=== PATIENT | male | born 1985 | race Two or more races ===

== ENCOUNTER 2018-04-20 10:21 | Emergency (ER) | payer MEDICAID ==
[~2018-04-20] VITALS: Ht 177.8 cm; Wt 79.4 kg
[~2018-04-20 10:21] MED LIST: AMYL1CAP56 PO; BUSP10TA3 PO; HYDR4TAB4 PO; INSU100V11 SQ; INSU100V7 SQ; QUET300T2 PO; ZOLP5TAB2 PO
--- NOTE | 2018-04-20 10:34 | NUR ---
PT BIB SELF C/O chest pain and epigastric pain x 20 mins ago, PT IS AAOX4, NOT IN RESPIRATORY DISTRESS, KEPT RESTED AND COMFORTABLE. LABS DRAWNED AND SENT TO LAB.
--- NOTE | 2018-04-20 10:35 | NUR ---
DR. ROCHA AT BEDSIDE FOR EVAL.
[2018-04-20] MEDS ORDERED: ONDANSETRON HCL/PF 4 MG/2 ML VIAL ONE (10:42)
[2018-04-20] MEDS ORDERED: HYDROMORPHONE 1 MG/1 ML DISP.SYRIN ONE (10:43)
[2018-04-20 10:46] LABS: BASOPHILS # (AUTO) 0.3 /CMM (0.0-0.2); BASOPHILS % (AUTO) 4.4 % (0.0-2.0); EOSINOPHILS % (AUTO) 1.3 % (0.0-6.0); HEMATOCRIT 31 % (39-51); HEMOGLOBIN 10.3 g/dL (13.5-17.5); LYMPHOCYTES # (AUTO) 1.7 /CMM (0.8-4.8); LYMPHOCYTES % (AUTO) 24.5 % (20.0-44.0); MEAN CORPUSCULAR HGB CONC 33 g/dl (31.0-36.0); MEAN CORPUSCULAR VOLUME 79 fL (80-96); MONOCYTES # (AUTO) 0.7 /CMM (0.1-1.30); MONOCYTES % (AUTO) 9.9 % (2.0-12.0); NEUTROPHILS # (AUTO) 4.1 /CMM (1.8-8.9); NEUTROPHILS % (AUTO) 59.9 % (43.0-81.0); PLATELET COUNT (AUTO) 795 /CMM (150-450); RED BLOOD CELL COUNT(AUTO) 3.98 MIL/uL (4.5-6.0); WHITE BLOOD COUNT (AUTO) 6.9 K/uL (4.3-11.0)
[2018-04-20 10:59] LABS: POTASSIUM 3.7 mmol/L (3.5-5.1)
[2018-04-20] MEDS ORDERED: HYDROMORPHONE INJ 2 MG/ML DISP.SYRIN IV ONE (11:00)
[2018-04-20] MEDS ORDERED: ONDANSETRON HCL/PF 4 MG/2 ML VIAL IVP ONE (11:00)
--- NOTE | 2018-04-20 11:03 | NUR ---
[employer] DEVELOPER AT BEDSIDE.
[2018-04-20 11:07] LABS: CALCIUM, SERUM 8.6 mg/dL (8.5-10.1); CARBON DIOXIDE 30 mmol/L (21-32); CHLORIDE 98 mmol/L (98-107); SODIUM SERUM 134 mmol/L (136-145); UREA NITROGEN, BLOOD 6 mg/dL (7-18)
[2018-04-20 11:08] LABS: ALANINE AMINOTRANSFERASE 18 U/L (12-78); ALBUMIN 2.8 g/dL (3.4-5.0); ALKALINE PHOSPHATASE 134 U/L (46-116); ASPARTATE AMINOTRANSFERASE 16 U/L (15-37); BILIRUBIN,DIRECT 0.1 mg/dL (0.0-0.2); BILIRUBIN,TOTAL 0.3 mg/dL (0.2-1.0); CREATININE 0.8 mg/dL (0.6-1.3); LIPASE 40 U/L (73-393); TOTAL PROTEIN, SERUM 7.9 g/dL (6.4-8.2)
[2018-04-20 11:09] LABS: GLUCOSE 401 mg/dL (74-106)
--- NOTE | 2018-04-20 11:41 | NUR ---
Patient discharged to home in stable condition. Written and verbal after care instructions given. Patient verbalizes understanding of instruction.
[2018-04-20 11:42] VITALS: BP 134/91
== END 2018-04-20 11:43 | disposition home or self-care (01) ==
LOC: ER 10:22
DX: R10.13 Epigastric pain (principal); R00.2 Palpitations; E11.9 Type 2 diabetes mellitus without complications; F17.200 Nicotine dependence, unspecified, uncomplicated; Z90.49 Acquired absence of other specified parts of digestive tract; Z98.890 Other specified postprocedural states; Z87.19 Personal history of other diseases of the digestive system; Z88.1 Allergy status to other antibiotic agents; Z79.4 Long term (current) use of insulin; Z79.899 Other long term (current) drug therapy
CPT/HCPCS: 36415; 71045-TC; 80048-TC; 80076-TC; 83690-TC; 84484-TC; 85025-TC; 85730-TC; A4606; J1170; J2405; Z7610

== ENCOUNTER 2018-05-11 20:43 | Inpatient (IN) | payer MEDICAID ==
[~2018-05-11] VITALS: Ht 177.8 cm; Wt 80.3 kg
--- NOTE | 2018-05-11 21:10 | NUR ---
TO BED 4 AMBULATORY C/O EPIGASTRIC ABDOMINAL PAIN X3 DAYS +N/V, DENIES DIARRHEA. PT AAOX4 NO ACUTE DISTRESS NOTED, RESP EVEN AND UNLABORED. URINE SAMPLE COLLECTED AND SENT TO LAB. PENDING ER MD HEWITT.
[2018-05-11] MEDS ORDERED: ONDANSETRON HCL/PF 4 MG/2 ML VIAL ONE (21:29)
[2018-05-11] MEDS ORDERED: HYDROMORPHONE INJ 0.5 MG/0.5 ML SYRINGE ONE ×2 (21:30→23:21)
[2018-05-11] MEDS ORDERED: ONDANSETRON HCL/PF 4 MG/2 ML VIAL IVP ONE (21:30)
[2018-05-11] MEDS ORDERED: HYDROMORPHONE INJ 2 MG/ML DISP.SYRIN IV ONE (21:30)
[2018-05-11] MEDS ORDERED: IV NS 0.9% 1,000 ML BAG IV ONE ×2 (21:30→23:30)
[2018-05-11 21:44] LABS: APPEARANCE,URINE Clear (CLEAR); BILIRUBIN,URINE Negative (NEGATIVE); BLOOD, URINE Negative Ery/uL (NEGATIVE); COLOR,URINE Yellow (YELLOW); KETONES,URINE Negative (NEGATIVE); LEUKOCYTE ESTERASE ,URINE Negative (NEGATIVE); NITRITE, URINE Negative (NEGATIVE); PH,URINE 6.5 (5.0-8.0); PROTEIN,URINE Negative (NEGATIVE); UGLUCOSE >=1000 mg/dL (NEGATIVE); UROBILINOGEN,URINE 0.2 EU/dL (0.2)
--- NOTE | 2018-05-11 21:44 | NUR ---
RN AT BEDSIDE TO MEDICATE PT.
[2018-05-11 21:47] LABS: BASOPHILS % (AUTO) 1.1 % (0.0-2.0); EOSINOPHILS % (AUTO) 0.7 % (0.0-6.0); HEMATOCRIT 34 % (39-51); HEMOGLOBIN 10.9 g/dL (13.5-17.5); LYMPHOCYTES # (AUTO) 0.9 /CMM (0.8-4.8); LYMPHOCYTES % (AUTO) 20.8 % (20.0-44.0); MEAN CORPUSCULAR HGB CONC 32 g/dl (31.0-36.0); MEAN CORPUSCULAR VOLUME 80 fL (80-96); MONOCYTES # (AUTO) 0.2 /CMM (0.1-1.30); MONOCYTES % (AUTO) 4.4 % (2.0-12.0); NEUTROPHILS # (AUTO) 3.1 /CMM (1.8-8.9); PLATELET COUNT (AUTO) 787 /CMM (150-450); RED BLOOD CELL COUNT(AUTO) 4.29 MIL/uL (4.5-6.0); WHITE BLOOD COUNT (AUTO) 4.3 K/uL (4.3-11.0)
[2018-05-11 21:54] LABS: BACTERIA,URINE None seen /HPF (None Seen); RBC,URINE 0-2 /HPF (0-2); SQUAMOUS EPITHELIAL CELL,UR Few /HPF (None Seen); WBC,URINE 0-2 /HPF (0-3)
[2018-05-11 21:59] LABS: ALBUMIN 3.5 g/dL (3.4-5.0); BILIRUBIN,DIRECT 0.1 mg/dL (0.0-0.2); BILIRUBIN,TOTAL 0.5 mg/dL (0.2-1.0); CALCIUM, SERUM 9.2 mg/dL (8.5-10.1); POTASSIUM 5.3 mmol/L (3.5-5.1); TOTAL PROTEIN, SERUM 9.1 g/dL (6.4-8.2)
--- NOTE | 2018-05-11 22:28 | NUR ---
RT AT BEDSIDE FOR ABG
[2018-05-11 22:39] LABS: ABG OXYGEN SATURATION 97.5 % (92.0-98.5); ABG PCO2 47.5 mmHg (35.0-45.0); ABG PH 7.381 (7.350-7.450); ABG PO2 109.1 mmHg (75.0-100.0); COHb 0.6 % (0.5-1.5); MetHb 0.5 % (0.0-1.5); O2Hb 96.4 % (94.0-97.0); SITE, ABG Right Radial; VENT MODE, BG RA
[2018-05-11] MEDS ORDERED: INSULIN REGULAR, HUMAN 100 UNIT/ML 10 ML VIAL SQ ONE (23:00)
[2018-05-11] MEDS ORDERED: INSULIN REGULAR, HUMAN 100 UNIT/ML 10 ML VIAL ONE (23:21)
[2018-05-11] MEDS ORDERED: HYDROMORPHONE INJ 0.5 MG/0.5 ML SYRINGE IV ONE (23:30)
--- NOTE | 2018-05-11 23:38 | NUR ---
ER MARY BANKS AT BEDSIDE SPOKE TO PT REGARDING HOSPITAL ADMISSION. PT AGREED.
[2018-05-12] VITALS (7 sets, daily range): BP systolic 94–109; BP diastolic 53–75
--- NOTE | 2018-05-12 00:10 | NUR ---
REPORT CALLED TO [employer]PA[employer] MANAGER ARVI. WILL TRANSPORT PT VIA ACLS PROTOCOL.
--- NOTE | 2018-05-12 00:28 | NUR ---
TROY HERNANDEZ TALKING TO IVETTE HONG [facility] REGARDING PT ADMISSION. WILL TRANSPORT PT VIA ACLS PROTOCOL.
[2018-05-12] MEDS ORDERED: INSULIN REGULAR, HUMAN 100 UNIT/ML 3 ML VIAL SQ PRN (00:30)
[2018-05-12] MEDS ORDERED: ONDANSETRON HCL/PF 4 MG/2 ML VIAL IVP PRN (00:30)
[2018-05-12] MEDS ORDERED: HYDROCODONE/APAP 5/325MG 1 EACH TABLET PO PRN (00:30)
[2018-05-12] MEDS ORDERED: Z GUARD REMEDY 2 OZ OINT TP PRN (00:30)
[2018-05-12] MEDS ORDERED: MAGNESIUM HYDROXIDE 30 ML UDC PO PRN (00:30)
[2018-05-12] MEDS ORDERED: MORPHINE SULFATE INJ 4 MG/ML DISP.SYRIN IV PRN (00:30)
[2018-05-12] MEDS ORDERED: ACETAMINOPHEN 325 MG TABLET PO PRN (00:30)
[2018-05-12] MEDS ORDERED: DEXTROSE 50%-WATER 50 ML DISP.SYRIN IV PRN ×2 (00:30→13:00)
[2018-05-12] MEDS ORDERED: MAG HYDROX/AL HYDROX/SIMETH 30 ML UDC PO PRN (00:30)
--- NOTE | 2018-05-12 00:45 | NUR ---
RECEIVED PATIENT FROM ER FOR DX ABDOMINAL PAIN. AO X 3, ABLE TO MAKE NEEDS KNOWN. NO ACUTE DISTRESS NOTED. 5/10 ABDOMINAL PAIN. SKIN INTACT. SAFETY REMINDERS GIVEN. ON LOW BED WITH BILATERAL UPPER SIDE RAILS UP. CALL ELDER WITHIN EASY REACH. WILL CONTINUE TO MONITOR.
[2018-05-12] MEDS ORDERED: IV NS 0.9% 1,000 ML IV PRN (01:00)
[2018-05-12] MEDS ORDERED: INSULIN GLARGINE, 100 UNIT/ML CARTRIDGE SQ SCH ×2 (01:00→22:00)
[2018-05-12] MEDS: QUETIAPINE FUMARATE 100 MG TABLET PO SCH ×2 (01:30→22:26)
--- NOTE | 2018-05-12 02:16 | NUR ---
NOTIFIED IVETTE WALSH THAT PATIENT DOES NOT WANT NORCO BECAUSE IT'S INEFFECTIVE. PATIENT WANTS DILAUDID 2 MG OR 4 MG PO. NEW ORDER RECEIVED FOR DILAUDID 2 MG PO X 1; NOTED AND CARRIED OUT.
[2018-05-12] MEDS ORDERED: HYDROMORPHONE HCL 2 MG TABLET PO PRN (02:30)
--- NOTE | 2018-05-12 06:00 | NUR ---
PATIENT ASLEEP, EASILY AROUSABLE. RESPIRATONS EVEN. NO SIGNS OF PAIN NOTED. DUE MEDS GIVEN WITH NO ASE NOTED. IVF INFUSING ORDERED. NO SYMPTOMS OF HYPER/HYPOGLYCEMIA. NEEDS ATTENDED. KEPT CLEAN, DRY, AND COMFORTABLE. SAFETY PRECAUTIONS AND COMFORT MEASURES IN PLACE. WILL GIVE REPORT TO DAY SHIFT FOR CONTINUITY OF CARE.
[2018-05-12] MEDS: BLOOD SUGAR DIAGNOSTIC 1 EACH STRIP IN SCH ×7 (06:39→23:55)
--- NOTE | 2018-05-12 06:55 | NUR ---
PROVIDER HEALTHCARE OR MEDICAL PAGED FOR CRITICAL BLOOD SUGAR RESULT; WAITING FOR CALL BACK. WILL ENDORSE TO DAY SHIFT.
[2018-05-12 07:41] LABS: BASOPHILS # (AUTO) 0.1 /CMM (0.0-0.2); BASOPHILS % (AUTO) 1.8 % (0.0-2.0); EOSINOPHILS % (AUTO) 1.6 % (0.0-6.0); HEMATOCRIT 28 % (39-51); HEMOGLOBIN 9.2 g/dL (13.5-17.5); LYMPHOCYTES # (AUTO) 1.6 /CMM (0.8-4.8); LYMPHOCYTES % (AUTO) 37.4 % (20.0-44.0); MEAN CORPUSCULAR HGB CONC 33 g/dl (31.0-36.0); MEAN CORPUSCULAR VOLUME 78 fL (80-96); MONOCYTES # (AUTO) 0.7 /CMM (0.1-1.30); MONOCYTES % (AUTO) 15.8 % (2.0-12.0); NEUTROPHILS # (AUTO) 1.8 /CMM (1.8-8.9); NEUTROPHILS % (AUTO) 43.4 % (43.0-81.0); PLATELET COUNT (AUTO) 632 /CMM (150-450); RED BLOOD CELL COUNT(AUTO) 3.58 MIL/uL (4.5-6.0); WHITE BLOOD COUNT (AUTO) 4.2 K/uL (4.3-11.0)
--- NOTE | 2018-05-12 07:48 | NUR ---
RN OPENING NOTES RECEIVED PATIENT IN BED SLEEPING, EASILY AROUSES. A/OX3, ABLE TO MAKE NEEDS KNOWN. NOT IN ANY FORM OF DISTRESS, NO SOB. DENIED PAIN OR DISCOMFORT AT THIS TIME. IV ACCESS INTACT AND PATENT. KEPT PATIENT SAFE AND COMFORTABLE. BED IN LOW/LOCKED POSITION, SIDERAILS UPX2, CALL LIGHT IN REACH. WILL MONIOTR ACCORDINGLY.
[2018-05-12 07:59] LABS: CALCIUM, SERUM 9.1 mg/dL (8.5-10.1); CREATININE 0.8 mg/dL (0.6-1.3); MAGNESIUM 2.1 mg/dL (1.8-2.4); PHOSPHORUS 3.5 mg/dL (2.5-4.9); POTASSIUM 5.4 mmol/L (3.5-5.1)
[2018-05-12] MEDS ORDERED: Medication Not On Formulary EA (Lipase/Protease/Amylase (Creon Dr 12,000 Units Capsule) PO SCH (08:00)
[2018-05-12 08:05] LABS: THYROID STIMULATING HORMONE 0.423 uIU/mL (0.358-3.74)
[2018-05-12] MEDS: PANTOPRAZOLE 40 MG TABLET.DR PO SCH (08:54)
[2018-05-12] MEDS: busPIRone 5 MG TABLET PO SCH ×2 (08:54→16:45)
--- NOTE | 2018-05-12 09:00 | NUR ---
RN NOTES PER PATIENT, HE DOESNT HAVE ANY OPEN WOUNDS OR BRUISES. REFUSED PHOTOS FOR NOW. STILL ON HIS PANTS, REFUSED BODY CHECK.
[2018-05-12] MEDS: IV NS 0.9% 1,000 ML IV PRN ×2 (09:23→20:49)
[2018-05-12] MEDS: LIPASE/PROTEASE/AMYLASE 1 EACH CAPSULE.DR PO SCH ×2 (12:25→17:01)
[2018-05-12] MEDS: HYDROMORPHONE HCL 2 MG TABLET PO PRN ×3 (12:30→20:47)
[2018-05-12] MEDS: INSULIN REGULAR, HUMAN 100 UNIT/ML 3 ML VIAL SQ PRN ×2 (13:10→17:11)
--- NOTE | 2018-05-12 19:15 | NUR ---
RN CLOSING NOTES PATIENT IN STABLE CONDITION. ALL NEEDS ATTENDED AND PROVIDED. ALL DUE MEDICATIONS ADMINISTERED ORDERED. KEPT PATIENT SAFE AND COMFORTABLE. BED IN LOW/LOCKED POSITION. SIDERAILS UPX2, CALL LIGHT IN REACH. ENDORSED TO NIGHT RN FOR MARIT.
--- NOTE | 2018-05-12 19:18 | NUR ---
MS RN OPENING NOTES: RECEIVED PT ON ROOM AIR AND IS TOLERATING WELL. NO S/S OF DISTRESS AT THIS TIME. NO SOB NOTED. PT HAS IV AND IS BEING INFUSED WITH IV NS AT 125ML/HR. BED KEPT IN LOW, LOCKED POSITION, AND SIDE RAILS X 2UP. WILL CONTINUE TO MONITOR PT.
--- NOTE | 2018-05-12 19:31 | NUR ---
MS RN NOTES: ACCUCHEK NON ADMIN THERE IS ANOTHER ONE; DUPLICATE .
--- NOTE | 2018-05-12 20:52 | NUR ---
MS RN NOTES: PT COMPLAINING OF 8/10 AB PAIN. PT WAS ADMINISTERED DILAUDID 2MG PO. WILL CONTINUE TO MONITOR PT.
[2018-05-12] MEDS: *INSULIN REGULAR(HUMULIN R)HUM 100 UNIT/ML VIAL SQ PRN (21:41)
[2018-05-12] MEDS: ZOLPIDEM TARTRATE 5 MG TABLET PO SCH (21:49)
--- NOTE | 2018-05-12 21:52 | NUR ---
MS RN NOTES: BLOOD SUGAR WAS 320. 48 UNITS OF LANTUS WAS ADMINISTERED. IN ADDITION, 8 UNITS OF REGULAR INSULIN WAS ADMINISTERED. PUDDING, ORANGE JUICE, SANDWICH, CHARLES CRACKERS PROVIDED AT BEDSIDE. ALSO, PT REQUESTING FOR AMBIEN 10MG. INFORMED PT THAT MD ORDER IS AMBIEN 5MG PO ONLY. PT ADMINISTERED AMBIEN 5MG PO.
[2018-05-12 22:10] LABS: OCCULT BLOOD STOOL NEGATIVE (NEGATIVE)
[2018-05-13 00:39] VITALS: BP 134/87
[2018-05-13] MEDS: HYDROMORPHONE HCL 2 MG TABLET PO PRN ×6 (00:47→22:55)
--- NOTE | 2018-05-13 00:49 | NUR ---
MS RN NOTES: PT COMPLAINING OF ABDOMINAL PAIN 12/02. PT WAS ADMINISTERED DILAUDID 2MG PO. WILL CONTINUE TO MONITOR.
[2018-05-13] MEDS: IV NS 0.9% 1,000 ML IV PRN ×2 (05:13→21:48)
[2018-05-13 05:41] VITALS: BP 128/86
--- NOTE | 2018-05-13 05:47 | NUR ---
MS RN NOTES: PT COMPLAINING OF 8/10 ABDOMINAL SHARP PAIN. PT WAS ADMINISTERED DILAUDID 2MG PO. WILL CONTINUE TO MONITOR.
[2018-05-13] MEDS: BLOOD SUGAR DIAGNOSTIC 1 EACH STRIP IN SCH ×7 (06:06→23:07)
[2018-05-13] MEDS: INSULIN REGULAR, HUMAN 100 UNIT/ML 3 ML VIAL SQ PRN ×3 (06:23→17:15)
--- NOTE | 2018-05-13 06:28 | NUR ---
MS RN NOTES: BLOOD SUGAR THIS AM WAS 338. 16 UNITS OF INSULIN WAS ADMINISTERED. PT ALWAYS HAVING SNACKS AT BEDSIDE. WILL ENDORSE TO AM NURSE FOR AMRIT.
--- NOTE | 2018-05-13 07:27 | NUR ---
MS RN CLOSING NOTES: ALL NEEDS WERE ATTENDED AND ANTICIPATED FOR. PT ASLEEP AT THIS TIME AND RESTING COMFORTABLY. PT REFUSING TO HAVE SKIN PHOTOS TAKEN WELL. PT HAS IV AND IS BEING INFUSED WITH IV NS 125ML/HR. BED KEPT IN LOW, LOCKED POSITION, AND SIDE RAILS X 2UP. ENDORSED TO AM NURSE FOR AMRIT.
--- NOTE | 2018-05-13 07:50 | NUR ---
MS RN OPENING NOTE RECEIVED PATIENT IN BED. SLEEPING, EASILY AROUSED WITH VERBAL STIMULI. ORIENTED X4, VERBALLY AGGRESSIVE. ON ROOM AIR, TOLERATING WELL. IN NO APPARENT DISTRESS OR DISCOMFORT AT THIS TIME. RESPIRATIONS EVEN AND UNLABORED, DENIES PAIN AND SOB. PATIENT IS ABLE TO COMMUNICATE NEEDS. LEFT FA 18G IVC WITH FLUIDS RUNNING AT 125ML/HR. KEPT CLEAN AND COMFORTABLE. ALL NEEDS ATTENDED, SAFETY MEASURES IN PLACE, BED IN LOW LOCKED POSITION, SIDE RAILS UP X2, CALL LIGHT WITHIN EASY REACH. WILL CONTINUE TO MONITOR.
[2018-05-13 08:00] VITALS: BP 105/60
[2018-05-13] MEDS: LIPASE/PROTEASE/AMYLASE 1 EACH CAPSULE.DR PO SCH ×3 (08:27→17:13)
[2018-05-13] MEDS: PANTOPRAZOLE 40 MG TABLET.DR PO SCH (08:27)
[2018-05-13] MEDS: busPIRone 5 MG TABLET PO SCH ×2 (08:27→17:07)
[2018-05-13 16:00] VITALS: BP 119/67
--- NOTE | 2018-05-13 18:50 | NUR ---
MS RN CLOSING NOTE PATIENT IN BED. SLEEPING, EASILY AROUSED WITH VERBAL STIMULI. ORIENTED X4. ON ROOM AIR, TOLERATING WELL. IN NO APPARENT DISTRESS OR DISCOMFORT AT THIS TIME. RESPIRATIONS EVEN AND UNLABORED, DENIES PAIN AND SOB. PATIENT IS ABLE TO COMMUNICATE NEEDS. LEFT FA 18G IVC WITH FLUIDS RUNNING AT 125ML/HR. KEPT CLEAN AND COMFORTABLE. ALL NEEDS ATTENDED, SAFETY MEASURES IN PLACE, BED IN LOW LOCKED POSITION, SIDE RAILS UP X2, CALL LIGHT WITHIN EASY REACH. WILL ENDORSE TO PM NURSE FOR AMRIT.
--- NOTE | 2018-05-13 19:41 | NUR ---
MS/RN RECEIVE PATIENT AWAKE, ALERT, ORIENTED, COMFORTABLE, NO C/O PAIN, NO DISTRESS NOTED, CALL LIGHT IN REACH. WILL MONITOR.
[2018-05-13 20:00] VITALS: BP 128/85
[2018-05-13] MEDS: ZOLPIDEM TARTRATE 5 MG TABLET PO SCH (21:47)
[2018-05-13] MEDS: QUETIAPINE FUMARATE 100 MG TABLET PO SCH (21:47)
[2018-05-13] MEDS: *INSULIN REGULAR(HUMULIN R)HUM 100 UNIT/ML VIAL SQ PRN (23:01)
[2018-05-13] MEDS: INSULIN GLARGINE, 100 UNIT/ML CARTRIDGE SQ SCH (23:02)
--- NOTE | 2018-05-13 23:20 | NUR ---
MS/RN ACCU CHECK AC HS MILD WAS NOT ADMINISTERED, THIS ORDER WAS CHANGED TO MODERATE SLIDING SCALE.
--- NOTE | 2018-05-14 00:12 | NUR ---
MS/RN PATIENT IS SLEEPING AT THIS TIME, APPEAR COMFORTABLE, BREATHING EVEN AND UNLABORED, CALL LIGHT IN REACH. WILL CONTINUE TO MONITOR.
--- NOTE | 2018-05-14 02:00 | NUR ---
MS/RN PATIENT AWAKE, WENT TO THE BATHROOM, REFUSED TO BE CONNECTED BACK TO IVF.
[2018-05-14] MEDS: HYDROMORPHONE HCL 2 MG TABLET PO PRN ×6 (02:54→23:30)
--- NOTE | 2018-05-14 06:28 | NUR ---
MS/RN STILL SLEEPING AT THIS TIME, AROUSABLE APPEAR COMFORTABLE, NO DISTRESS NOTED, ALL NEEDS ATTENDED AT THIS TIME, WILL CONTINUE TO MONITOR.
[2018-05-14] MEDS: INSULIN REGULAR, HUMAN 100 UNIT/ML 3 ML VIAL SQ PRN ×3 (07:04→17:08)
[2018-05-14] MEDS: BLOOD SUGAR DIAGNOSTIC 1 EACH STRIP IN SCH ×8 (07:05→22:47)
--- NOTE | 2018-05-14 07:47 | NUR ---
MS RN OPENING NOTE RECEIVED PATIENT IN BED. SLEEPING, EASILY AROUSED WITH VERBAL STIMULI. ORIENTED X4. ON ROOM AIR, TOLERATING WELL. IN NO APPARENT DISTRESS OR DISCOMFORT AT THIS TIME. RESPIRATIONS EVEN AND UNLABORED, DENIES PAIN AND SOB. PATIENT IS ABLE TO COMMUNICATE NEEDS. LEFT FA 18G IVC, SL, INFILTRATED, PATIENT REFUSED TO HAVE IT REMOVED AT THIS TIME. EXPLAINED RISKS AND BENEFITS, PATIENT VERBALIZED UNDERSTANDING AND ASKED TO COME BACK LATER. KEPT CLEAN AND COMFORTABLE. ALL NEEDS ATTENDED, SAFETY MEASURES IN PLACE, BED IN LOW LOCKED POSITION, SIDE RAILS UP X2, CALL LIGHT WITHIN EASY REACH. WILL CONTINUE TO MONITOR.
[2018-05-14 08:00] VITALS: BP_SYST 118; BP_SYST 162; BP_DIAS 64; BP_DIAS 91
[2018-05-14 08:01] VITALS: BP 118/64
[2018-05-14] MEDS: PANTOPRAZOLE 40 MG TABLET.DR PO SCH (08:11)
[2018-05-14] MEDS: busPIRone 5 MG TABLET PO SCH ×2 (08:11→17:11)
[2018-05-14] MEDS: LIPASE/PROTEASE/AMYLASE 1 EACH CAPSULE.DR PO SCH ×3 (08:11→17:11)
--- NOTE | 2018-05-14 10:28 | NUR ---
PATIENT WITH FEVER 100.4. COOLING MEASURES IMPLEMENTED, TYLENOL 650MG PRN ADMINISTERED. MD NOTIFIED. WILL CONTINUE TO MONITOR.
--- NOTE | 2018-05-14 10:29 | NUR ---
PATIENT' S BODY TEMPERATURE WAS RECHECKED. 98.1 AT THIS TIME. PATIENT IS AFEBRILE. WILL CONTINUE TO MONITOR.
--- NOTE | 2018-05-14 14:00 | NUR ---
PATIENT'S PREVIOUS IV SITE INFILTRATED, SWELLING PRESENT ON THE LEFT FOREARM. ELEVATED THE EXTREMITY AND APPLIED ICE PACK TO THE AFFECTED AREA. PATIENT REFUSED TO HAVE PICTURE TAKEN OF THE ARM. AFTER ABOUT AN HOUR NOTED THAT PATIENT REMOVED THE ICE PACK AND THE PILLOW. ENCOURAGED TO ELEVATE AND ICE THE ARM, PATIENT REFUSED, STATING HE DOES NOT WANT TO DO THAT NOW. RISKS AND BENEFITS EXPLAINED, PATIENT VERBALIZED UNDERSTANDING BUT STILL INSISTED TO LEAVE THE ARM IT IS. WILL CONTINUE TO MONITOR.
--- NOTE | 2018-05-14 14:00 | NUR ---
SEVERAL ATTEMPTS MADE TO ESTABLISH IV ACCESS BY 2 DIFFERENT NURSES FROM THE UNIT AND ONE OTHER NURSE FROM ER, CHARLES. ALL ATTEMPTS UNSUCCESSFUL. REPORTED TO DR. MATOS, PATIENT IS OK TO REMAIN WITH NO IV ACCESS PER MD. NOTED AND CARRIED OUT.
[2018-05-14 16:00] VITALS: BP 120/75
--- NOTE | 2018-05-14 18:00 | NUR ---
PATIENT NON-COMPLIANT WITH PRESCRIBED DIET. EDUCATION PROVIDED, RISKS AND BENEFITS DISCUSSED.
--- NOTE | 2018-05-14 18:38 | NUR ---
MS RN CLOSING NOTE PATIENT IN BED. ALERT ORIENTED X4. ON ROOM AIR, TOLERATING WELL. IN NO APPARENT DISTRESS OR DISCOMFORT AT THIS TIME. RESPIRATIONS EVEN AND UNLABORED, DENIES PAIN AND SOB. PATIENT IS ABLE TO COMMUNICATE NEEDS. NO IV SITE PRESENT. MD AWARE. LEFT FOREARM EDEMA PRESENT, REFUSED ICE PACK. KEPT CLEAN AND COMFORTABLE. ALL NEEDS ATTENDED, SAFETY MEASURES IN PLACE, BED IN LOW LOCKED POSITION, SIDE RAILS UP X2, CALL LIGHT WITHIN EASY REACH. WILL ENDORSE TO PM NURSE FOR AMRIT.
--- NOTE | 2018-05-14 19:31 | NUR ---
RN NOTES COMPLAINTS OF 8/10 LEFT ARM PAIN AND ABDOMINAL PAIN. DILAUDID GIVEN PER MD ORDERED. ALL COMFORT MEASURES PROVIDED.
--- NOTE | 2018-05-14 19:35 | NUR ---
MS RN NOTEs RECEIVED PATIENT AWAKE IN BED. ORIENTED X4. ON ROOM AIR, TOLERATING WELL. RESPIRATIONS EVEN AND NON LABORED, COMPLAINTS OF ABDOMINAL PAIN 8/10 PATIENT IS ABLE TO COMMUNICATE NEEDS. DILAUDID 2MG TAB GIVEN PER MD ORDER. ALL NEEDS ATTENDED, SAFETY MEASURES IN PLACE, BED IN LOW LOCKED POSITION, SIDE RAILS UP X2, CALL LIGHT WITHIN EASY REACH. WILL CONTINUE TO MONITOR ACCORDINGLY.
[2018-05-14 20:00] VITALS: BP 129/83
[2018-05-14 20:01] VITALS: BP 129/83
--- NOTE | 2018-05-14 20:30 | NUR ---
RN NOTES PATIENT IS RESTING AT THIS TIME WITH VERY MINIMAL DISCOMFORT WITH FACIAL GRIMACING NOTED.
[2018-05-14] MEDS: INSULIN GLARGINE, 100 UNIT/ML CARTRIDGE SQ SCH (22:41)
[2018-05-14] MEDS: QUETIAPINE FUMARATE 100 MG TABLET PO SCH (22:46)
[2018-05-14] MEDS: *INSULIN REGULAR(HUMULIN R)HUM 100 UNIT/ML VIAL SQ PRN (22:46)
[2018-05-14] MEDS: ZOLPIDEM TARTRATE 5 MG TABLET PO SCH (22:46)
--- NOTE | 2018-05-14 23:30 | NUR ---
RN NOTES ALL NEEDS ATTENDED, PATIENT COMPLAINTS OF ABDOMINAL PAIN, DILAUDID GIVEN ORDERED KEPT RESTED.
[2018-05-15] MEDS: HYDROMORPHONE HCL 2 MG TABLET PO PRN ×3 (03:37→12:08)
--- NOTE | 2018-05-15 03:37 | NUR ---
RN NOTES PATIENT WAS ABLE TO REST AND SLEEP AT INTERVALS, COMPLAINTS OF PAIN AND DISCOMFORT, DILAUDID GIVEN PER PATIENT REQUEST, HEALTH TEACHINGS GIVEN, ADVISED PATIENT TO UTILIZED NON PHARMACOLOGICAL MEASURES FIRST HOWEVER PATIENT INSISTED TO TAKE DILAUDID 2 MG, IT IS THE ONLY PAIN MEDICATION THAT WORKS FOR HIM ACCORDING TO PATIENT, " DILAUDID IS THE ONLY PAIN PILL THAT WORKS FOR ME", VERBALIZED BY PATIENT. WILL CONTINUE TO MONITOR.
--- NOTE | 2018-05-15 06:32 | NUR ---
MS RN NOTEs PATIENT WAS ABLE TO REST AND SLEEP WITH INTERVALS. ORIENTED X4. ON ROOM AIR, SATING WELL. RESPIRATIONS EVEN AND NON LABORED, COMPLAINTS OF ABDOMINAL PAIN 8/10 PATIENT AND LEFT ARM PAIN AND IS ABLE TO COMMUNICATE NEEDS. DILAUDID 2MG TAB GIVEN PER MD ORDER. ALL NEEDS ATTENDED, SAFETY MEASURES IN PLACE, BED IN LOW LOCKED POSITION, SIDE RAILS UP X2, CALL LIGHT WITHIN EASY REACH. WILL ENDORSE TO AM NURSE FOR CONTINUITY OF CARE.
[2018-05-15] MEDS: BLOOD SUGAR DIAGNOSTIC 1 EACH STRIP IN SCH ×4 (06:46→12:04)
[2018-05-15] MEDS: INSULIN REGULAR, HUMAN 100 UNIT/ML 3 ML VIAL SQ PRN ×2 (06:49→12:16)
--- NOTE | 2018-05-15 07:30 | NUR ---
RN OPENING NOTES RECEIVED PATIENT IN BED SLEEPING, EASILY AROUSES. A/OX3, ABLE TO MAKE NEEDS KNOWN. NOT IN ANY FORM OF DISTRESS, NO SOB. DENIED PAIN OR DISCOMFORT AT THIS TIME. NO IV ACCESS. KEPT PATIENT SAFE AND COMFORTABLE. BED IN LOW/LOCKED POSITION, SIDERAILS UPX2, CALL LIGHT IN REACH. WILL MONIOTR ACCORDINGLY.
[2018-05-15] MEDS: PANTOPRAZOLE 40 MG TABLET.DR PO SCH (07:57)
[2018-05-15] MEDS: LIPASE/PROTEASE/AMYLASE 1 EACH CAPSULE.DR PO SCH ×2 (07:58→12:09)
[2018-05-15 08:00] VITALS: BP 123/93
[2018-05-15] MEDS: busPIRone 5 MG TABLET PO SCH (08:01)
--- NOTE | 2018-05-15 13:30 | NUR ---
RN NOTES BUS PASS TAP CARD GIVEN
--- NOTE | 2018-05-15 14:10 | NUR ---
DISCHARGED PATIENT IN STABLE CONDITION ACCOMPANIED BY [facility] TO THE LOBBY. DISCHARGE INSTRUCTIONS GIVEN, VERBALIZED UNDERSTANDING. DC PAPERWORK AND PRESCRIPTION GIVEN. ALL BELONGINGS RETURNED, FORM SIGNED. NO IV ACCESS NOTED. REMOVED NAME BAND. REFUSED PICTURES.
== END 2018-05-15 13:50 | disposition home or self-care (01) | DRG 420 ==
LOC: ER 20:45 → TELE 23:55 → MED 05-12 08:57
PROVIDERS: ADMIT Internal Medicine; ATTEND Internal Medicine
DX: E10.65 Type 1 diabetes mellitus with hyperglycemia (principal); G93.41 Metabolic encephalopathy; Z79.4 Long term (current) use of insulin; F41.9 Anxiety disorder, unspecified; D63.8 Anemia in other chronic diseases classified elsewhere; F32.9 Major depressive disorder, single episode, unspecified; F17.210 Nicotine dependence, cigarettes, uncomplicated; Z90.49 Acquired absence of other specified parts of digestive tract; Z90.81 Acquired absence of spleen; R10.9 Unspecified abdominal pain
CPT/HCPCS: 36415; 36600; 80048-TC; 80061-TC; 80076-TC; 81000-TC; 82272-TC; 82803-TC; 82962-TC; 83690-TC; 83735-TC; 84100-TC; 84443-TC; 84484-TC; 85025-TC; 85730-TC; 87081-TC; G0378; J1815; J2405; J7030